=== PATIENT | male | born 1935 | race Caucasian/White ===

== ENCOUNTER 2017-12-19 17:47 | Emergency (ER) | payer MEDICARE, BC ==
[~2017-12-19] VITALS: Ht 180.3 cm; Wt 88.4 kg
[~2017-12-19 17:47] MED LIST: ASPIRIN81 MG PO; CALCIUM600 M1 PO; CHLORPHEN4 MG PO; CRESTOR5 MG PO; FISH OIL1000 MG PO; FLEXERIL PO; MULTI VIT PO; PAPAVERINE 30 MG/ML IJ; RANITIDINE150 M1 PO; ULTRAM50 M1 PO
[2017-12-19] MEDS ORDERED: FUROSEMIDE20 MG PO (18:48)
[2017-12-19] MEDS ORDERED: DIGITEK0.25 M1 PO (18:48)
[2017-12-19] MEDS ORDERED: LISINOPRIL2.5 MG PO (18:49)
[2017-12-19 19:47] LABS: HEMATOCRIT 46.7 % (39.0-50.0); HEMOGLOBIN 15.7 g/dl (14.0-18.0); IMMATURE GRANULOCYTES 0.4 % (0.0-1.0); MEAN CELL VOLUME 95.3 fL CALC (80.0-100.0); MEAN CORPUSCULAR HGB CONC 33.6 g/L CALC (32.0-36.0); NEUT# 9.16 thou/uL (1.82-7.42); RED BLOOD COUNT 4.9 mill/uL (4.70-6.10); RED CELL DISTRI WIDTH 12.5 % (11.5-15.5)
[2017-12-19 20:02] LABS: ALBUMIN 4.5 g/dL (3.2-5.0); ALKALINE PHOSPHATASE 62 u/l (38-126); ANION GAP 19 (6-22 (CALC)); BILIRUBIN, TOTAL 2.4 mg/dL (0.0-1.4); BUN 20 mg/dL (8-23); BUN/CREATININE RATIO 18 (12-20 (CALC)); CARBON DIOXIDE 27 mmol/l (22-30); CHLORIDE 100 mmol/l (95-108); CREATININE 1.1 mg/dL (0.7-1.3); GFR > 60 ML/MIN (>=60 (CALC)); GFR FOR AFR.AMER. > 60 ML/MIN (>=60 (CALC)); POTASSIUM 4.5 mmol/l (3.5-5.1); SGOT/AST 28 u/l (19-48); SGPT/ALT 39 u/l (11-66); SODIUM 141 mmol/l (137-146); TOTAL PROTEIN 7.1 g/dL (6.3-8.2)
[2017-12-19 20:10] LABS: INTERNATIONAL NORMALIZED RATIO 1.1 RATIO (0.7-1.3); MYOGLOBIN 84 ng/mL (0 - 121); PROTHROMBIN TIME 12.1 SECONDS (9.0-12.5)
[2017-12-19] MEDS ORDERED: MEDDOSEPAK PO (20:20)
[2017-12-19] MEDS ORDERED: ULTRAM50 M1 PO (20:20)
[2017-12-19 20:30] VITALS: BP 127/75
== END 2017-12-19 20:38 | disposition home or self-care (01) ==
LOC: ED 17:47
PROVIDERS: Emergency Medicine
DX: M46.92 Unspecified inflammatory spondylopathy, cervical region (principal); M50.30 Other cervical disc degeneration, unspecified cervical region; E11.9 Type 2 diabetes mellitus without complications; I25.2 Old myocardial infarction; K90.0 Celiac disease

== ENCOUNTER → 2018-12-06 | Outpatient (REF) | payer MEDICARE, BC ==
[~2018-12-06] MED LIST changes: +DIGITEK0.25 M1 PO; +FUROSEMIDE20 MG PO; +LISINOPRIL2.5 MG PO; +MEDDOSEPAK PO
[2018-12-06 08:04] LABS: HEMATOCRIT 44.8 % (39.0-50.0); IMMATURE GRANULOCYTES 0.3 % (0.0-5.0); MEAN CELL VOLUME 96.1 fL CALC (80.0-100.0); MEAN CORPUSCULAR HGB 32.2 pG CALC (26.0-32.0); MEAN CORPUSCULAR HGB CONC 33.5 g/L CALC (32.0-36.0); NEUT# 3.87 thou/uL (1.82-7.42); RED BLOOD COUNT 4.66 mill/uL (4.70-6.10); RED CELL DISTRI WIDTH 12.6 % (11.5-15.5)
[2018-12-06 08:26] LABS: ANION GAP 16 (6-22 (CALC)); BUN 15 mg/dL (8-23); BUN/CREATININE RATIO 17 (12-20 (CALC)); CARBON DIOXIDE 28 mmol/l (22-30); CHLORIDE 101 mmol/l (95-108); CREATININE 0.9 mg/dL (0.7-1.3); GFR > 60 ML/MIN (>=60 (CALC)); GFR FOR AFR.AMER. > 60 ML/MIN (>=60 (CALC)); POTASSIUM 4.1 mmol/l (3.5-5.1); SODIUM 141 mmol/l (137-146)
[2018-12-06 08:35] LABS: PROTHROMBIN TIME 10.7 SECONDS (9.0-12.5)
== END | disposition home or self-care (01) ==
LOC: LAB 07:08
PROVIDERS: ATTEND Internal Medicine
DX: Z51.81 Encounter for therapeutic drug level monitoring (principal); E78.5 Hyperlipidemia, unspecified; I25.10 Atherosclerotic heart disease of native coronary artery without angina pectoris; I10 Essential (primary) hypertension; Z01.812 Encounter for preprocedural laboratory examination

== ENCOUNTER 2019-10-20 | Emergency (ER) | payer MEDICARE, BC ==
[~2019-10-20] MED LIST changes: -CHLORPHEN4 MG PO; +[UNRECOGNIZED DRUG - REMARK] PO
[2019-10-20] MEDS ORDERED: KEFLEX500 M1 PO (15:22)
[2019-10-20] MEDS ORDERED: ROSUVASTATIN CA20 MG PO (15:33)
[2019-10-20] MEDS ORDERED: XARELTO20 MG PO (15:34)
[2019-10-20] MEDS ORDERED: LOPRESSOR25 M1 PO (15:34)
== END 2019-10-20 15:30 | disposition home or self-care (01) ==
DX: L03.114 Cellulitis of left upper limb (principal)

== ENCOUNTER 2022-11-29 10:32 | Inpatient (IN) | payer MEDICARE, BC ==
[~2022-11-29] VITALS: Ht 180.3 cm; Wt 90.4 kg
[~2022-11-29 10:32] MED LIST changes: +KEFLEX500 M1 PO; +LOPRESSOR25 M1 PO; +ROSUVASTATIN CA20 MG PO; +XARELTO20 MG PO
--- NOTE | 2022-11-29 10:50 | NUR ---
PT TO ROOM VIA WC ABLE TO STAND AND TRANSFER SELF TO STRETCHER.
[2022-11-29 12:16] LABS: BASO% 0.4 % (0-3); EOS% 5.9 % (0-8); HEMOGLOBIN 14.4 g/dl (14.0-18.0); IMMATURE GRANULOCYTES 0.2 % (0.0-5.0); LYMPH% 22.1 % (15-41); MEAN CELL VOLUME 97.7 fL CALC (80.0-100.0); MEAN CORPUSCULAR HGB 30.6 pG CALC (26.0-32.0); MEAN CORPUSCULAR HGB CONC 31.3 g/dL CAL (32.0-36.0); MONO% 11.6 % (2-13); NEUT# 2.95 thou/uL (1.82-7.42); NEUT% 59.8 % (42-76); RED BLOOD COUNT 4.71 mill/uL (4.70-6.10); RED CELL DISTRI WIDTH 13.2 % (11.5-15.5)
[2022-11-29 12:31] LABS: ALBUMIN 4.2 g/dL (3.2-5.0); ALKALINE PHOSPHATASE 56 u/l (38-126); ANION GAP 10 (6-22 (CALC)); BILIRUBIN, TOTAL 1.8 mg/dL (0.2-1.3); BUN 17 mg/dL (8-23); BUN/CREATININE RATIO 17 (12-20 (CALC)); CARBON DIOXIDE 28 mmol/l (22-30); CHLORIDE 104 mmol/l (95-108); GFR FOR AFR.AMER. > 60 ML/MIN (>=60 (CALC)); GFR OTHER RACES > 60 ML/MIN (>=60 (CALC)); POTASSIUM 4.4 mmol/l (3.5-5.1); SGOT/AST 42 u/l (19-48); SODIUM 139 mmol/l (137-146); TOTAL PROTEIN 7.1 g/dL (6.3-8.2)
[2022-11-29] MEDS ORDERED: LEVOTHYROXIN75 MCG PO (14:15)
[2022-11-29] MEDS ORDERED: LEVOTHYROXIN50 MCG PO (14:15)
[2022-11-29] MEDS ORDERED: METOPROLOL SUCC50 MG PO (14:18)
[2022-11-29] MEDS ORDERED: CANDESARTAN CILE8 MG PO (14:18)
[2022-11-29] MEDS ORDERED: COQ10200 MG PO (14:20)
[2022-11-29] MEDS ORDERED: METFORMIN HCL1000 MG PO (14:20)
[2022-11-29] MEDS ORDERED: PEPCID20 MG PO (14:21)
--- NOTE | 2022-11-29 14:22 | NUR ---
PT TO BE ADMITTED AWARE OF CURRENT POC.
--- NOTE | 2022-11-29 15:35 | NUR ---
PT TO [facility] VIA STRETCHER IN STABLE CONDITION. VSS. BEDSIDE REPORT PROVIDED.
[2022-11-29 15:51] VITALS: BP 138/120
[2022-11-29 16:01] VITALS: BP 138/120
--- NOTE | 2022-11-29 17:02 | NUR ---
PT ARRIVES FROM ER ACCOMPANIED BY AZHEER CHOWDHURY. PT SEEN AWAKE, ALERT, ORIENTED X 3. LUNGS ARE SLIGHTLY WHEEZY, RA. ACCOMPANIES.
--- NOTE | 2022-11-29 19:00 | NUR ---
REPORT RECEIVED FROM TRENTON KIM. PATIENT OUT OF BED TO CHAIR WATCHING TV. NO DISTRESS NOTED. CALL LIGHT WITHIN REACH.
[2022-11-29 19:13] VITALS: BP 147/94
--- NOTE | 2022-11-29 20:35 | NUR ---
PROOFING MACHINE OPERATOR NOTIFIED STRATEGIC PROCUREMENT MANAGER OF RHYTHM CHANGE OF AFIB. PATIENT ASSESSED NO PALPITATIONS REPORTED. PATIENT DENIES HISTORY OF AFIB. WHEN ASKED ABOUT HOME MEDICATION PATIENT STATES HE DID NOT TAKE AM BLOOD PRESSURE MEDS. NOTIFIED INSTRUCTED TO ADMINISTER METOPROLOL 50MG PO NOW.
--- NOTE | 2022-11-29 20:45 | NUR ---
PATIENT CONVERT BACK TO SR, RATE 93.
--- NOTE | 2022-11-29 20:50 | NUR ---
PATIENT DECLINED INSULIN COVERAGE. VERBAL EDUCATION PROVIDED ABOUT IMPORTANCE OF INSULIN COVERAGE INCREASE GLUCOSE MAY BE AFFECTED BY SOLUMEDROL. PATIENT CONTINUES TO DECLINE COVERAGE.
[2022-11-29 23:11] VITALS: BP 118/58
--- NOTE | 2022-11-29 23:50 | NUR ---
DENT REMOVER NOTIFIED MACHINIST SUPERVISOR OF AFIB. NOTIFIED ORDERS OBTAINED FOR METOPROLOL 5MG IV X1 DOSE, CONTINUOUS PULSE OX AND MAG LEVEL.
[2022-11-30] VITALS (9 sets, daily range): BP systolic 94–133; BP diastolic 50–66
--- NOTE | 2022-11-30 00:38 | NUR ---
METOPROLOL 5MG IVP ORDERED, DOSE GIVEN 3.5MG DUE TO HEART RATE DROPPING TO 48 BEATS PER MINUTE, BP REMAINS STABLE 117/66. PHYSICIAN NOTIFIED, NO FURTHER ORDERS GIVEN INSTRUCTED TO CONTINUE MONITORING.
--- NOTE | 2022-11-30 02:37 | NUR ---
PATIENT RESTING QUIETLY IN RECLINER, EYES CLOSED. CHAIR ALARM IN PLACE, CALL LIGHT WITHIN REACH.
--- NOTE | 2022-11-30 03:42 | NUR ---
RECEIVED REPORT AT THIS TIME FROM TRENTON CASTREJON TO RESUME CARE AT THIS TIME. PATIENT IS SITTING UP IN CHAIR AND CHAIR ALARM IS IN PLACE AT THIS TIME. PATIENT IS ALERT AND ORIENTED AND CALL LIGHT IS WITHIN REACH.
--- NOTE | 2022-11-30 04:01 | NUR ---
PATIENT SITTING UP IN CHAIR AT THIS TIME. PATIENT DENIES ANY NEEDS CURRENTLY. PATIENT REMAINS ON TELE MONITOR. CALL LIGHT IS WITHIN REACH.
--- NOTE | 2022-11-30 07:28 | NUR ---
RECEIVED PATIENT SITTING IN THE RECLINER. NO S/S OF DISTRESS NOTED. NO C/O OF PAIN OR DISCOMFORT.
--- NOTE | 2022-11-30 09:57 | NUR ---
PRODUCT/INDUSTRY CONSULTANT HERE EVALUATING THE PATIENT. AT BEDSIDE.
--- NOTE | 2022-11-30 12:00 | NUR ---
PATIENT REMIAN SITTING IN THE CHAIR. HE DECIDED TO STAY FOR TODAY TO BE MONITORED.
--- NOTE | 2022-11-30 15:37 | NUR ---
wifes number is [phone], number on information sheet is wrong.
--- NOTE | 2022-11-30 20:10 | NUR ---
PATIENT SITTING UP IN CHAIR AT THIS TIME. PATIENT IS ON CONTINUEOUS PULSE OX AND IS READING 92% ON ROOM AIR. PATIENT TELE MONITOR IS BEING MONITORED BY ED AND IS CURRENTLY READING S/R AT 92 WITH 1DEGREE AVBLOCK. PATIENT GLUCOSE READING IS 180 AND IS REFUSING TO TAKE SLIDING SCALE COVERAGE FOR THIS RESULT. PATIENT WAS GIVEN EDUCATION ON RISK AND BENEFITS OF SLIDING SCALE COVERAGE AND PATIENT DENIES NEED FOR COVERAGE AT THIS TIME. PATIENT STATES " I ONLY TAKE METFORMIN". PATIENT IS ALERT AND ORIENTED X 3 NO EVIDENCE OF EDEMA NOTED. LUNG MCLEAN ARE CLEAR AND BOWEL SOUNDS ARE PRESENT IN ALL FOUR QUADS. PATIENT DENIES ANY PAIN AND OR NEEDS AT THIS TIME. CALL LIGHT IS WITHIN REACH AND PATIENT IS INSTRUCTED TO CALL FOR HELP PRIOR TO GETTING UP.
--- NOTE | 2022-11-30 21:15 | NUR ---
DR. ACEVEDO NOTIFIED THAT PATIENT IS REFUSING TO WEAR CONTINUEOUS PULSE OX AT THIS TIME AND GAVE ORDER TO D/C DUE TO PATIENT REFUSING TO WEAR IT. PATIENT EDUCATED ON BENEFIT AND RISK AND STILL DECLINES TO CONTINUE USING IT.
--- NOTE | 2022-11-30 23:50 | NUR ---
ED CALLED STATED PATIENT HEART RATE STATUS CHANGED AT THIS TIME AND IS NOW READING A-FIB RVR. DR. ACEVEDO CALLED AT THIS TIME AND ORDERS GIVEN TO GIVE METROPOLO 5MG IV PUST AT THIS TIME AND TO CONTINUE TO MONITOR. PATIENT GIVEN EDUCATION REGARDING MEDICATION AND VERBALIZES AND UNDERSTANDS THE NEED. PATIENT IS SITTING IN CHAIR DENIES FEELING CHEST PAINS OR SHORTNESS OF BREATH AT THIS TIME. CALL LIGHT IS WITHIN REACH.
--- NOTE | 2022-12-01 04:15 | NUR ---
PATIENT RESTING IN CHAIR AT THIS TIME. PATIENT DENEIS ANY NEEDS AT THIS TIME. TELE MONITOR READING SINUS RHTHAM AT 87. PATIENT CALL LIGHT IS WITHIN REACH.
[2022-12-01 05:18] VITALS: BP 109/43
[2022-12-01 06:16] LABS: BASO% 0.1 % (0-3); HEMATOCRIT 41.6 % (39.0-50.0); HEMOGLOBIN 13.4 g/dl (14.0-18.0); IMMATURE GRANULOCYTES 0.1 % (0.0-5.0); MEAN CELL VOLUME 96.1 fL CALC (80.0-100.0); MEAN CORPUSCULAR HGB 30.9 pG CALC (26.0-32.0); MEAN CORPUSCULAR HGB CONC 32.2 g/dL CAL (32.0-36.0); NEUT# 10.93 thou/uL (1.82-7.42); NEUT% 85.8 % (42-76); RED BLOOD COUNT 4.33 mill/uL (4.70-6.10); RED CELL DISTRI WIDTH 13.1 % (11.5-15.5)
[2022-12-01 06:21] LABS: ALBUMIN 4.2 g/dL (3.2-5.0); ALKALINE PHOSPHATASE 49 u/l (38-126); ANION GAP 14 (6-22 (CALC)); BILIRUBIN, TOTAL 1.1 mg/dL (0.2-1.3); BUN 35 mg/dL (8-23); BUN/CREATININE RATIO 32 (12-20 (CALC)); CARBON DIOXIDE 25 mmol/l (22-30); CHLORIDE 103 mmol/l (95-108); CREATININE 1.1 mg/dL (0.7-1.3); GFR FOR AFR.AMER. > 60 ML/MIN (>=60 (CALC)); GFR OTHER RACES > 60 ML/MIN (>=60 (CALC)); MAGNESIUM 2.3 mg/dL (1.6-2.3); POTASSIUM 4.4 mmol/l (3.5-5.1); SGOT/AST 49 u/l (19-48); SODIUM 138 mmol/l (137-146); TOTAL PROTEIN 7.1 g/dL (6.3-8.2)
[2022-12-01 06:50] VITALS: BP 119/48
[2022-12-01 10:51] VITALS: BP 138/69
[2022-12-01] MEDS ORDERED: PREDNISONE10 MG PO (11:19)
[2022-12-01] MEDS ORDERED: ZITHROMAX250 MG PO (11:20)
--- NOTE | 2022-12-01 13:49 | NUR ---
DISCHARGE REVIEWED WITH PT AND SPOUSE. IV REMOVED WITH CATHETER INTACT. ALL QUESTIONS ANSWERED. DISCHARGE RX REVIEWED WITH SIGNS AND SYMPTOMS. TELEMETRY REMOVED. ALL PERSONAL BELONGINGS WITH PT.
== END 2022-12-01 13:53 | disposition home or self-care (01) | DRG 203 ==
LOC: ED 10:32 → MS2 14:03
PROVIDERS: Emergency Medicine; Nurse Practitioner Family; ADMIT Internal Medicine; ATTEND Internal Medicine
DX: J20.9 Acute bronchitis, unspecified (principal); R09.02 Hypoxemia; I10 Essential (primary) hypertension; E11.9 Type 2 diabetes mellitus without complications; I25.10 Atherosclerotic heart disease of native coronary artery without angina pectoris; E03.9 Hypothyroidism, unspecified; J45.909 Unspecified asthma, uncomplicated; K90.0 Celiac disease; Z95.1 Presence of aortocoronary bypass graft; Z79.84 Long term (current) use of oral hypoglycemic drugs; Z20.822 Contact with and (suspected) exposure to COVID-19
CPT/HCPCS: G0378

== ENCOUNTER 2023-01-15 09:52 | Emergency (ER) | payer MEDICARE, BC ==
[~2023-01-15] VITALS: Ht 180.3 cm; Wt 72.0 kg
[2023-01-15] VITALS (7 sets, daily range): BP systolic 100–141; BP diastolic 56–77
[~2023-01-15 09:52] MED LIST changes: +CANDESARTAN CILE8 MG PO; +COQ10200 MG PO; +LEVOTHYROXIN50 MCG PO; +LEVOTHYROXIN75 MCG PO; +METFORMIN HCL1000 MG PO; +METOPROLOL SUCC50 MG PO; +PEPCID20 MG PO; +PREDNISONE10 MG PO; +ZITHROMAX250 MG PO
[2023-01-15 10:30] LABS: BASO% 0.2 % (0-3); EOS% 0.8 % (0-8); HEMOGLOBIN 14.9 g/dl (14.0-18.0); IMMATURE GRANULOCYTES 0.3 % (0.0-5.0); LYMPH% 12.3 % (15-41); MEAN CELL VOLUME 96.6 fL CALC (80.0-100.0); MEAN CORPUSCULAR HGB 31.3 pG CALC (26.0-32.0); MEAN CORPUSCULAR HGB CONC 32.4 g/dL CAL (32.0-36.0); MONO% 9.6 % (2-13); NEUT# 7.83 thou/uL (1.82-7.42); NEUT% 76.8 % (42-76); RED BLOOD COUNT 4.76 mill/uL (4.70-6.10); RED CELL DISTRI WIDTH 13.5 % (11.5-15.5)
[2023-01-15 10:52] LABS: ALBUMIN 4.6 g/dL (3.2-5.0); ALKALINE PHOSPHATASE 69 u/l (38-126); ANION GAP 15 (6-22 (CALC)); BUN 17 mg/dL (8-23); BUN/CREATININE RATIO 16 (12-20 (CALC)); CARBON DIOXIDE 27 mmol/l (22-30); CHLORIDE 101 mmol/l (95-108); CREATININE 1.1 mg/dL (0.7-1.3); GFR FOR AFR.AMER. > 60 ML/MIN (>=60 (CALC)); GFR OTHER RACES > 60 ML/MIN (>=60 (CALC)); POTASSIUM 4.7 mmol/l (3.5-5.1); SGOT/AST 28 u/l (19-48); SODIUM 139 mmol/l (137-146); TOTAL PROTEIN 7.7 g/dL (6.3-8.2)
[2023-01-15 11:10] LABS: BILIRUBIN, TOTAL 2.4 mg/dL (0.2-1.3)
[2023-01-15] MEDS ORDERED: TRAMADOL HYDROC50 M1 PO (12:44)
== END 2023-01-15 13:06 | disposition home or self-care (01) ==
LOC: ED 09:52
PROVIDERS: Family Medicine
DX: M54.2 Cervicalgia (principal); M25.512 Pain in left shoulder; I10 Essential (primary) hypertension; E11.9 Type 2 diabetes mellitus without complications; K90.0 Celiac disease; Z79.84 Long term (current) use of oral hypoglycemic drugs